=== PATIENT | female | born 1945 | race Caucasian/White ===

== ENCOUNTER 2018-05-20 10:15 | Day surgery (SDC) | payer MEDICARE ==
[~2018-05-20 10:15] MED LIST: Acetaminophen TAB* 325 MG PO PRN; Buffered Lidocaine 0.9% SYRIN* 5 ML/SYR SYRINGE INTRADERM ONE
[2018-05-20] MEDS ORDERED: Midazolam* 1 MG/ML 2 ML VIAL (2 MG) ONE ×2 (13:00→13:20)
[2018-05-20] MEDS ORDERED: fentaNYL* 50 MCG/ML 2 ML VIAL (100 MCG VIAL) ONE (13:26)
[2018-05-20 13:46] VITALS: BP 108/58
--- NOTE | 2018-05-20 15:22 | OP ---
DATE OF OPERATION: 05/20/2018. DATE OF : 1945. SURGEON: Shukri Moe M.D. PREOPERATIVE DIAGNOSIS: Cataract right eye. POSTOPERATIVE DIAGNOSIS: Cataract right eye. OPERATIVE PROCEDURE: Extracapsular cataract extraction with intraocular lens implant right eye. PROCEDURE: The patient was brought to the operating room after being given 1/2% Alcaine with epineph rine drops in the preoperative area. The eye was prepped and draped in the usual sterile fashion. S terile drape and eyelid speculum were placed. Again, topical 1/2% Alcaine with epinephrine was given . A paracentesis incision was made at the 9 o'clock position with the No.75 blade. Clear cornea inc ision 2.2 x 2.2-mm was created at the 12 o'clock position starting at the anterior limbus using the 2 .2-mm keratome. The anterior chamber was irrigated with 0.4 mL of 1% non-preservative intracameral l idocaine and filled with DisCoVisc. A capsulorrhexis was completed using the cystotome and the Utrat a forceps. Hydrodissection was performed with balanced salt solution. The lens nucleus was removed w ith the Phacoemulsification handpiece without incident. Cortex was removed with the irrigation-aspir ation handpiece. The capsular bag was re-inflated using DisCoVisc and an [id number] 11.5 implant was ins erted with the shooter, oriented to the 88 degree meridian. Horizontal reference haque made with the patient in a seated position in the preoperative area. The irrigation-aspiration handpiece was used to remove all residual DisCoVisc. The eye was refilled with balanced salt solution and the wound ch ecked and found to be watertight. Topical Maxitrol drops were given. [id number]/[facility] #: [id number]
[2018-05-20] MEDS ORDERED: Lidocaine 1%* 5 ML VIAL ONE (15:26)
[2018-05-20] MEDS ORDERED: Povidone Iodine 5% OPTH* 30 ML BTL ONE (15:26)
[2018-05-20] MEDS ORDERED: Phenylephrine 2.5% OPTH.SOL* 2 ML BTL ONE (15:26)
[2018-05-20] MEDS ORDERED: Neomycin/Polymy/Dex OPTH.SUSP* MAXITROL 0.1% 5 ML ONE (15:26)
[2018-05-20] MEDS ORDERED: acetaZOLAMIDE TAB* 250 MG ONE (15:26)
[2018-05-20] MEDS ORDERED: Ketorolac 0.5% OPHTH (NF) 0.5 % 5 ML BTL ONE (15:26)
[2018-05-20] MEDS ORDERED: Cyclopentolate 1% OPTH.SOL* 2 ML BTL ONE (15:26)
[2018-05-20] MEDS ORDERED: Lidocaine 2% EPI 1:200000 MPF*10-20 ML VIAL ONE (15:26)
[2018-05-20] MEDS ORDERED: Proparacaine 0.5% OPHTH.SOL* 15 ML BTL ONE (15:27)
== END 2018-05-20 13:54 | disposition home or self-care (01) ==
LOC: OREAST 10:15
PROVIDERS: ATTEND Specialist
DX: H25.811 Combined forms of age-related cataract, right eye (principal); H43.813 Vitreous degeneration, bilateral; H35.372 Puckering of macula, left eye; I10 Essential (primary) hypertension; E78.00 Pure hypercholesterolemia, unspecified; Z72.0 Tobacco use; F41.9 Anxiety disorder, unspecified
CPT/HCPCS: A9270-GY; J2250; J3010; V2787

== ENCOUNTER 2018-05-27 10:37 | Day surgery (SDC) | payer MEDICARE ==
[~2018-05-27 10:37] MED LIST changes: -Acetaminophen TAB* 325 MG PO PRN
[2018-05-27] MEDS ORDERED: Cyclopentolate 1% OPTH.SOL* 2 ML BTL ONE (11:06)
[2018-05-27] MEDS ORDERED: Neomycin/Polymy/Dex OPTH.SUSP* MAXITROL 0.1% 5 ML ONE (11:06)
[2018-05-27] MEDS ORDERED: Ketorolac 0.5% OPHTH (NF) 0.5 % 5 ML BTL ONE (11:06)
[2018-05-27] MEDS ORDERED: Lidocaine 1%* 5 ML VIAL ONE (11:06)
[2018-05-27] MEDS ORDERED: acetaZOLAMIDE TAB* 250 MG ONE (11:06)
[2018-05-27] MEDS ORDERED: Lidocaine 2% EPI 1:200000 MPF*10-20 ML VIAL ONE (11:06)
[2018-05-27] MEDS ORDERED: Proparacaine 0.5% OPHTH.SOL* 15 ML BTL ONE (11:06)
[2018-05-27] MEDS ORDERED: Phenylephrine 2.5% OPTH.SOL* 2 ML BTL ONE (11:06)
[2018-05-27] MEDS ORDERED: Povidone Iodine 5% OPTH* 30 ML BTL ONE (11:06)
[2018-05-27] MEDS ORDERED: Midazolam* 1 MG/ML 2 ML VIAL (2 MG) ONE ×2 (12:56→13:09)
[2018-05-27 13:29] VITALS: BP 102/57
--- NOTE | 2018-05-28 03:11 | OP ---
DATE OF OPERATION: 05/27/18 [facility] DATE OF : [birth year]. SURGEON: Shukri Moe M.D. PREOPERATIVE DIAGNOSIS: Cataract left eye. POSTOPERATIVE DIAGNOSIS: Cataract left eye. OPERATIVE PROCEDURE: Extracapsular cataract extraction with intraocular lens implant left eye. DESCRIPTION OF PROCEDURE: The patient was brought to the operating room after being given 1/2% Alcaine with epinephrine drops in the preoperative area. The eye was prepped and draped in the usual sterile fashion. Sterile drape and eyelid speculum were placed. Again, topical 1/2% Alcaine with epinephrine was given. A paracentesis incision was made at the 3 o'clock position with the No.75 blade. Clear cornea incision 2.2 x 2.2-mm was created at the 6 o'clock position starting at the anterior limbus using the 2.2-mm keratome. The anterior chamber was irrigated with 0.4 mL of 1% non-preservative intracameral lidocaine and filled with DisCoVisc. A capsulorrhexis was completed using the cystotome and the Utrata forceps. Hydrodissection was performed with balanced salt solution. The lens nucleus was removed with the Phacoemulsification handpiece without incident. Cortex was removed with the irrigation-aspiration handpiece. The capsular bag was re-inflated using DisCoVisc and an [id number] implant was inserted with the shooter, oriented to the 86-degree meridian. Horizontal reference haque were made with the patient in a seated position in the preoperative area. The irrigation-aspiration handpiece was used to remove all residual DisCoVisc. The eye was refilled with balanced salt solution and the wound checked and found to be watertight. Topical Maxitrol drops were given. [id number]/[facility] #: [id number] MTDD
== END 2018-05-27 13:30 | disposition home or self-care (01) ==
LOC: OREAST 10:37
PROVIDERS: ATTEND Specialist
DX: H25.812 Combined forms of age-related cataract, left eye (principal); H35.372 Puckering of macula, left eye; H43.813 Vitreous degeneration, bilateral; Z72.0 Tobacco use; I10 Essential (primary) hypertension; F41.9 Anxiety disorder, unspecified
CPT/HCPCS: A9270-GY; J2250; V2787

== ENCOUNTER 2024-06-06 13:10 | Observation (INO) ==
[2024-06-06] MEDS: Iodixanol (CONTRAST) 320 MG/ML 100 ML SDV IV ONE (13:26)
[2024-06-06 13:27] LABS: Hematocrit 42.9 % (35-45); Hemoglobin 14.5 g/dL (11.5-14.3); Mean Corpuscular Hgb Conc 33.8 g/dL (31-36); Mean Corpuscular Volume 97.8 fL (80-97); Platelet Count 195 10^3/uL (150-450); Red Blood Count 4.38 10^6/uL (3.63-4.92); Red Cell Distribution Width 13.6 % (12-17); White Blood Count 9.9 10^3/uL (3.8-11.8)
[2024-06-06 13:40] LABS: INR 0.95 (0.83-1.13)
[2024-06-06 14:39] LABS: ALT 23 U/L (7-52); Albumin 4.2 g/dL (3.2-5.2); Albumin/Globulin Ratio 1.8 (1-3); Alkaline Phosphatase 52 U/L (35-149); Anion Gap 11 mmol/L (2-16); Blood Urea Nitrogen 13 mg/dL (6-24); CO2 Carbon Dioxide 26 mmol/L (22-32); Calcium 9.2 mg/dL (8.6-10.3); Chloride 102 mmol/L (101-111); Cholesterol 257 mg/dL; Creatinine, Serum 0.91 mg/dL (0.51-0.95); Globulin 2.4 g/dL (2-4); Glucose 166 mg/dL (70-100); HDL Cholesterol 68.3 mg/dL; LDL Cholesterol 155 mg/dL; Sodium 139 mmol/L (135-145); Total Protein 6.6 g/dL (6.4-8.9); Triglycerides 167 mg/dL
[2024-06-06 14:46] LABS: Urine Appearance Clear; Urine Bilirubin Negative (Negative); Urine Blood Negative (Negative); Urine Color Light-Yellow; Urine Glucose Negative (Negative); Urine Ketones Negative (Negative); Urine Nitrite 2+ (Negative); Urine Protein Negative (Negative); Urine Specific Gravity 1.028 (1.002-1.030); Urine Urobilinogen Negative (Negative); Urine pH 5.5 (5.0-8.0)
[2024-06-06 15:02] LABS: ABS Basophils 0.1 10^3/uL (0.0-0.1); ABS Eosinophils 0.3 10^3/uL (0.0-0.5); ABS Monocytes 0.4 10^3/uL (0.0-0.9); ABS Neutrophils 3.1 10^3/uL (1.5-7.6); ABS Nucleated RBC 0.02 10^3/ul; Eosinophil % 2.8 %; Lymphocyte % 60.4 %; Nucleated Red Blood Cells % 0.2 %/100WBC (0.0-0.8)
[2024-06-06] MEDS: Enoxaparin 40 MG/0.4 ML SYR SUBCUT SCH (15:14)
[2024-06-06 15:38] LABS: Urine Bacteria 1+ /HPF (Absent); Urine Red Blood Cell 1+(3-5/hpf) /HPF (0-Trace); Urine Squamous Epithelial Cell Present /HPF (Absent); Urine White Blood Cell 3+(>20/hpf) /HPF (0-Trace)
[2024-06-06 16:30] LABS: Potassium, Whole Blood 4.6 mmol/L (3.4-4.5)
[2024-06-06 17:08] LABS: Direct Bilirubin Redraw 0.1 mg/dL (0.1-0.5)
[2024-06-06] MEDS: Sulfur Hexaflouride MICROSPHR 25 MG VIAL IV ONE (22:17)
[2024-06-07 08:49] LABS: High Sensitivity Troponin 1 Hr 4 pg/mL (<15)
[2024-06-07] MEDS ORDERED: Sulfur Hexaflouride MICROSPHR 25 MG VIAL IV ONE (09:00)
[2024-06-07 14:40] VITALS: BP 124/72
== END 2024-06-07 17:02 | disposition home or self-care (01) ==
LOC: EDHOLD 13:10 → ED 13:10 → MEDTELE 17:00
PROVIDERS: ADMIT Internal Medicine; ATTEND Internal Medicine